=== PATIENT | female | born 1995 | race Two or more races ===

== ENCOUNTER 2019-09-29 11:28 | Emergency (ER) | payer OTHER, MEDICAID ==
[~2019-09-29] VITALS: Ht 157.5 cm; Wt 67.1 kg
[2019-09-29 16:44] VITALS: BP 93/45
== END 2019-09-29 16:44 | disposition home or self-care (01) ==
LOC: ER 11:28
DX: M54.2 Cervicalgia (principal); R51 Headache; V89.2XXA Person injured in unspecified motor-vehicle accident, traffic, initial encounter; Y93.I9 Activity, other involving external motion; Y92.410 Unspecified street and highway as the place of occurrence of the external cause; Y99.8 Other external cause status
CPT/HCPCS: 70450; 72040; 99284; J7030